=== PATIENT | male | born 1955 | race Two or more races ===

== ENCOUNTER 2018-11-08 01:02 | Emergency (ER) | payer MEDICAID ==
[~2018-11-08] VITALS: Ht 175.3 cm; Wt 65.8 kg
[~2018-11-08 01:02] MED LIST: METH10T GT
[2018-11-08 01:30] VITALS: BP 118/86
[2018-11-08 03:49] LABS: Basophils # (auto) 0 uL; Basophils % (auto) 0.3 % (0.0-2.0); Eosinophils # (auto) 0.5 uL; Eosinophils % (auto) 7.1 % (0.0-7.0); Hematocrit 37.4 % (41.0-53.0); Hemoglobin 12.1 g/dL (13.5-17.5); Lymphocytes # (auto) 1.8 uL; Lymphocytes % (auto) 26.8 % (10.0-50.0); Mean Corpuscular Hemoglobin 29.6 pg (28.0-32.0); Mean Corpuscular Hgb Conc. 32.3 g/dL (32.0-36.0); Mean Corpuscular Volume 91.5 fL (80.0-100.0); Monocytes # (auto) 0.6 uL; Monocytes % (auto) 9.4 % (0.0-12.0); Neutrophils # (auto) 3.8 uL; Neutrophils % (auto) 56.4 % (37.0-80.0); Nucleated Red Blood Cells % 0.1 %; Platelet Count (auto) 191 10^3/uL (140-450); Red Blood Cells 4.09 10^6/uL (4.5-5.90); Red Cell Distribution Width 18.4 % (11.8-14.3); White Blood Cell 6.7 10^3/uL (4.4-10.8)
[2018-11-08 04:01] LABS: Albumin 3.2 g/dL (3.4-5.0); Calcium 9.1 mg/dL (8.5-10.1); Magnesium 2.5 mg/dL (1.6-2.6); Potassium 4.9 mmol/L (3.5-5.1)
[2018-11-08 04:05] LABS: Bilirubin, Total 0.7 mg/dL (0.2-1.0); Total Protein 7.8 g/dL (6.4-8.2)
[2018-11-08 04:26] LABS: INR 1.22 (0.9-1.15); Partial Thromboplastin Time 25.4 sec (23.78-33.04); Prothrombin Time 12.9 sec (9.27-12.13)
== END 2018-11-08 06:00 | disposition left against medical advice (07) ==
LOC: ER 01:06
DX: R06.02 Shortness of breath (principal); Z53.21 Procedure and treatment not carried out due to patient leaving prior to being seen by health care provider
CPT/HCPCS: 36415; 71045; 74176; 80053; 83735; 83880; 84484; 85025; 85610; 85730; 93005

== ENCOUNTER 2018-11-24 19:18 | Emergency (ER) | payer MEDICAID ==
[~2018-11-24] VITALS: Ht 175.3 cm; Wt 68.9 kg
[2018-11-24 21:30] LABS: Basophils # (auto) 0 uL; Basophils % (auto) 0.1 % (0.0-2.0); Eosinophils # (auto) 0.8 uL; Eosinophils % (auto) 13.2 % (0.0-7.0); Hematocrit 37.4 % (41.0-53.0); Hemoglobin 11.8 g/dL (13.5-17.5); Lymphocytes # (auto) 1.5 uL; Lymphocytes % (auto) 25.7 % (10.0-50.0); Mean Corpuscular Hemoglobin 29.4 pg (28.0-32.0); Mean Corpuscular Hgb Conc. 31.7 g/dL (32.0-36.0); Mean Corpuscular Volume 92.7 fL (80.0-100.0); Monocytes # (auto) 0.6 uL; Monocytes % (auto) 9.6 % (0.0-12.0); Neutrophils % (auto) 51.4 % (37.0-80.0); Nucleated Red Blood Cells % 0.1 %; Platelet Count (auto) 211 10^3/uL (140-450); Red Blood Cells 4.03 10^6/uL (4.5-5.90); Red Cell Distribution Width 18.9 % (11.8-14.3); White Blood Cell 5.9 10^3/uL (4.4-10.8)
[2018-11-24 21:49] LABS: Albumin 3.1 g/dL (3.4-5.0); BUN/Creatinine Ratio 23.5; Calcium 9.2 mg/dL (8.5-10.1); Potassium 4.9 mmol/L (3.5-5.1)
[2018-11-24 21:58] LABS: Bilirubin, Total 0.8 mg/dL (0.2-1.0); Total Protein 7.4 g/dL (6.4-8.2)
[2018-11-25 02:57] LABS: Urine Bacteria MANY /hpf (None Seen); Urine Blood 2+ /uL (Negative); Urine Budding Yeast MANY /hpf (None Seen); Urine Specific Gravity 1.018 (1.001-1.035); Urine WBC 2910 /hpf (0 - 3)
[2018-11-25 04:41] VITALS: BP 153/92
[2018-11-25] MEDS ORDERED: FAMOTIDINE (10MG/ML) 2ML VL IV ONE (04:45)
[2018-11-25] MEDS ORDERED: FUROSEMIDE 20 MG/2 ML VIAL IV ONE (04:45)
[2018-11-25] MEDS ORDERED: cefTRIAXone 1GM/50ML D5W 50 ML IV ONE (05:00)
== END 2018-11-25 06:11 | disposition home or self-care (01) ==
LOC: ER 19:35
DX: I50.9 Heart failure, unspecified (principal); N39.0 Urinary tract infection, site not specified; R60.0 Localized edema; Z79.899 Other long term (current) drug therapy; J44.9 Chronic obstructive pulmonary disease, unspecified; F17.210 Nicotine dependence, cigarettes, uncomplicated
CPT/HCPCS: 36415; 71045; 80053; 81001; 82140; 83880; 84484; 85025; 93005; 96365; 96375; 99284; J0696; J1940; J3490

== ENCOUNTER 2019-09-26 13:24 | Emergency (ER) | payer MEDICAID ==
[~2019-09-26] VITALS: Ht 175.3 cm; Wt 55.3 kg
[~2019-09-26 13:24] MED LIST changes: +ATOR20TA50 PO; +BUPR8MIS SL; +CAR3125T PO; +FURO40TA4 PO; +SPIR25TA88 PO
[2019-09-26 13:55] VITALS: BP 109/77
[2019-09-26] MEDS ORDERED: GLUCAGON HYDROCHLORIDE (RDNA) 1 MG VIAL IV ONE (15:00)
== END 2019-09-26 17:46 | disposition left against medical advice (07) ==
LOC: ER 13:34
DX: T18.128A Food in esophagus causing other injury, initial encounter (principal); J44.9 Chronic obstructive pulmonary disease, unspecified; F17.210 Nicotine dependence, cigarettes, uncomplicated; W22.8XXA Striking against or struck by other objects, initial encounter; Y93.89 Activity, other specified; Y92.89 Other specified places as the place of occurrence of the external cause; Y99.8 Other external cause status

== ENCOUNTER 2020-07-09 17:40 | Inpatient (IN) | payer MEDICAID ==
[~2020-07-09] VITALS: Ht 167.6 cm; Wt 54.0 kg
[2020-07-09 21:19] LABS: Basophils # (auto) 0 10 ^3/uL (0-0.2); Basophils % (auto) 0.3 % (0.0-2.0); Lymphocytes # (auto) 1.7 10 ^3/uL (0.4-5.4); Monocytes # (auto) 0.4 10 ^3/uL (0-1.3); Nucleated Red Blood Cells % 0.1 %; Red Cell Distribution Width 18.2 % (11.8-14.3)
[2020-07-09 21:22] LABS: Eosinophils # (auto) 0.8 10 ^3/uL (0-0.8); Hematocrit 20.3 % (41.0-53.0); Lymphocytes % (auto) 35.3 % (10.0-50.0); Mean Corpuscular Hemoglobin 21.3 pg (28.0-32.0); Mean Corpuscular Hgb Conc. 30.7 g/dL (32.0-36.0); Mean Corpuscular Volume 69.5 fL (80.0-100.0); Monocytes % (auto) 8.5 % (0.0-12.0); Neutrophils % (auto) 40.4 % (37.0-80.0); Platelet Count (auto) 100 10^3/uL (140-450); Red Blood Cells 2.93 10^6/uL (4.5-5.90); White Blood Cell 4.9 10^3/uL (4.4-10.8)
[2020-07-09 21:45] LABS: Eosinophils % (auto) 15.5 % (0.0-7.0)
[2020-07-09 21:52] LABS: Hemoglobin 6.2 g/dL (13.5-17.5)
[2020-07-09 23:46] LABS: Potassium 4.2 mmol/L (3.5-5.1); Sodium 135 mmol/L (136-145)
[2020-07-09 23:47] LABS: Alanine Aminotransferase 42 U/L (16-61); Albumin 3.4 g/dL (3.4-5.0); Alkaline Phosphatase 114 U/L (45-117); Anion Gap 6 (5-15); Aspartate Aminotransferase 46 U/L (15-37); BUN/Creatinine Ratio 23.7; Bilirubin, Total 0.4 mg/dL (0.2-1.0); Blood Urea Nitrogen 22 mg/dL (7-18); Calcium 9.9 mg/dL (8.5-10.1); Carbon Dioxide 22 mmol/L (21-32); Chloride 107 mmol/L (98-107); GFR African American 106 mL/min; GFR Non-African American 87 mL/min; Glucose 84 mg/dL (74-106); Magnesium 2.2 mg/dL (1.6-2.6); Total Protein 8.4 g/dL (6.4-8.2)
[2020-07-10] VITALS (8 sets, daily range): BP systolic 99–115; BP diastolic 59–72
[2020-07-10 00:40] LABS: INR 1.1 (0.9-1.15); Partial Thromboplastin Time 24.3 sec (23.0-31.2)
[2020-07-10] MEDS ORDERED: ONDANSETRON HCL 4 MG/2 ML VIAL IV PRN (04:30)
[2020-07-10] MEDS ORDERED: TEMAZEPAM 15 MG CAP PO PRN (04:30)
[2020-07-10] MEDS ORDERED: ACETAMINOPHEN 325 MG TAB PO PRN (04:30)
[2020-07-10 04:57] LABS: Urine Bacteria FEW /hpf (None Seen); Urine Blood Negative /uL (Negative); Urine Hyaline Cast FEW /lpf (0 - 2); Urine WBC 291 /hpf (0 - 3)
--- NOTE | 2020-07-10 05:30 | NUR ---
MS admit from ER ASHLI DOWNING admitted to [facility] unit after SBAR received. Patient oriented to NIURKA PIRES RN primary RN, unit, room, bed, and unit policies regarding patient care and visiting hours. Patient made comfortable, weighed by bedscale and encouraged to call if they need something. All questions and concerns addressed, patient verbalized understanding. Pt resting in bed with call christopher in reach. Will continue to monitor.
[2020-07-10] MEDS: SPIRONOLACTONE 25 MG TAB PO SCH ×2 (06:46→18:03)
--- NOTE | 2020-07-10 09:27 | NUR ---
ss consult Per consult advanced directive. Patient has been provided with advance directive. Addendum: 07/10/20 at 0930 by Eladia MAYORGA Amended: Links added.
[2020-07-10] MEDS: FUROSEMIDE 40 MG TAB PO SCH (10:33)
[2020-07-10] MEDS: FAMOTIDINE 20 MG TAB PO SCH ×2 (10:33→22:10)
[2020-07-10] MEDS: CARVEDILOL 3.125 MG TAB PO SCH ×2 (10:34→22:00)
[2020-07-10] MEDS: cefTRIAXone 1GM/50ML D5W 50 ML IV SCH (10:34)
[2020-07-10 11:26] LABS: Hematocrit 25.7 % (41.0-53.0)
[2020-07-10] MEDS: VANCOMYCIN HCL 125MG/5ML ORAL SOL PO SCH ×2 (18:03→22:10)
[2020-07-10 18:34] LABS: % Iron Saturation 11.2 % (20-55)
[2020-07-10] MEDS ORDERED: ATORVASTATIN 20 MG TAB PO SCH (22:00)
[2020-07-11 05:00] VITALS: BP 90/54
[2020-07-11] MEDS: VANCOMYCIN HCL 125MG/5ML ORAL SOL PO SCH ×2 (05:49→11:52)
[2020-07-11] MEDS: SPIRONOLACTONE 25 MG TAB PO SCH (05:49)
[2020-07-11 07:14] LABS: White Blood Cell 7.9 10^3/uL (4.4-10.8)
[2020-07-11 07:16] LABS: Hematocrit 28.9 % (41.0-53.0); Hemoglobin 8.9 g/dL (13.5-17.5); Mean Corpuscular Hemoglobin 22.2 pg (28.0-32.0); Mean Corpuscular Hgb Conc. 30.7 g/dL (32.0-36.0); Mean Corpuscular Volume 72.2 fL (80.0-100.0); Platelet Count (auto) 359 10^3/uL (140-450); Red Blood Cells 4.01 10^6/uL (4.5-5.90); Red Cell Distribution Width 19.8 % (11.8-14.3)
[2020-07-11 07:32] LABS: Basophils % (manual) 0 (0.0-2.0); Blast Cells 0; Metamyelocytes % 0; Myelocytes % 0; Promyelocytes % 0; Reactive Lymphocytes 0
[2020-07-11 07:33] LABS: Magnesium 2.4 mg/dL (1.6-2.6); Potassium 4.4 mmol/L (3.5-5.1)
[2020-07-11 07:36] LABS: BUN/Creatinine Ratio 23.9
[2020-07-11 08:10] LABS: Band Neutrophils % (manual) 1; Eosinophils % (manual) 14 (0-7); Lymphocytes % (manual) 13 (10.0-50.0); Monocytes % (manual) 3 (0-12)
[2020-07-11 09:00] VITALS: BP 101/65
[2020-07-11] MEDS: cefTRIAXone 1GM/50ML D5W 50 ML IV SCH (09:44)
[2020-07-11] MEDS: FUROSEMIDE 40 MG TAB PO SCH (09:45)
[2020-07-11] MEDS: FAMOTIDINE 20 MG TAB PO SCH (09:45)
[2020-07-11] MEDS: CARVEDILOL 3.125 MG TAB PO SCH (09:45)
[2020-07-11 13:00] VITALS: BP 95/62
[2020-07-11 13:53] VITALS: BP 95/62
[2020-07-11 14:51] VITALS: BP 95/62
--- NOTE | 2020-07-11 15:12 | NUR ---
Discharge instructions given as ordered. Encourage to follow up with PMD as instructed. All questions and concerns addressed. Patient verbalized understanding. Medication reconciliation form completed and copy given to patient.IV removed with catheter intact, pressure dressing applied. Patient taken to vehicle via wheelchair with all personal belongings, accompanied by staff and family member. No distress noted at time of departure.
== END 2020-07-11 15:18 | disposition short-term general hospital (02) | DRG 663 ==
LOC: ER 17:40 → OVERFLOW 17:41 → WEST WING 07-10 05:30
PROVIDERS: ADMIT Nurse Practitioner; ATTEND Internal Medicine
PROC: 30233N1 Transfusion of Nonautologous Red Blood Cells into Peripheral Vein, Percutaneous Approach (ICD-10-PCS; principal; 2020-07-10)
DX: D50.0 Iron deficiency anemia secondary to blood loss (chronic) (principal); I34.0 Nonrheumatic mitral (valve) insufficiency; J44.9 Chronic obstructive pulmonary disease, unspecified; D69.6 Thrombocytopenia, unspecified; I50.9 Heart failure, unspecified; F17.210 Nicotine dependence, cigarettes, uncomplicated; G89.4 Chronic pain syndrome; Z83.3 Family history of diabetes mellitus; Z87.828 Personal history of other (healed) physical injury and trauma; R91.1 Solitary pulmonary nodule; B18.2 Chronic viral hepatitis C
CPT/HCPCS: 36415; 71045; 71250; 76700; 80048; 80053; 81001; 82105; 82378; 83540; 83550; 83615; 83735; 83880; 84484; 85007; 85014; 85018; 85025; 85027; 85045; 85610; 85730; 86850; 86880; 86900; 86901; 86920; 87086; 93005; G0378; J0696

== ENCOUNTER 2020-08-07 16:46 | Emergency (ER) | payer MEDICAID | END 2020-08-07 17:30 | disposition left against medical advice (07) | LOC: ER 16:46 | DX: R06.02 Shortness of breath (principal); Z53.21 Procedure and treatment not carried out due to patient leaving prior to being seen by health care provider ==

== ENCOUNTER 2020-08-08 10:47 | Emergency (ER) | payer MEDICAID ==
[~2020-08-08] VITALS: Ht 175.3 cm; Wt 54.4 kg
[2020-08-08 10:47] VITALS: BP 99/63
[2020-08-08 14:32] LABS: Mean Corpuscular Volume 81.3 fL (80.0-100.0); White Blood Cell 2.4 10^3/uL (4.4-10.8)
[2020-08-08 14:34] LABS: Hematocrit 35.7 % (41.0-53.0); Hemoglobin 10.4 g/dL (13.5-17.5); Mean Corpuscular Hemoglobin 23.7 pg (28.0-32.0); Mean Corpuscular Hgb Conc. 29.1 g/dL (32.0-36.0); Platelet Count (auto) 161 10^3/uL (140-450); Red Blood Cells 4.39 10^6/uL (4.5-5.90)
[2020-08-08 14:40] LABS: Red Cell Distribution Width 29.3 % (11.8-14.3)
[2020-08-08 14:42] LABS: Basophils % (manual) 0 (0.0-2.0); Blast Cells 0; Eosinophils % (manual) 0 (0-7); Promyelocytes % 0; Reactive Lymphocytes 0
[2020-08-08 14:52] LABS: Albumin 2.6 g/dL (3.4-5.0); Anion Gap 7 (5-15); Blood Urea Nitrogen 33 mg/dL (7-18); Calcium 10.5 mg/dL (8.5-10.1); Carbon Dioxide 17 mmol/L (21-32); Chloride 107 mmol/L (98-107); Glucose 81 mg/dL (74-106); Potassium 5.2 mmol/L (3.5-5.1); Sodium 131 mmol/L (136-145)
[2020-08-08 14:56] LABS: Alanine Aminotransferase 38 U/L (16-61); Alkaline Phosphatase 78 U/L (45-117); Aspartate Aminotransferase 64 U/L (15-37); BUN/Creatinine Ratio 31.7; Bilirubin, Total 0.8 mg/dL (0.2-1.0); GFR African American 93 mL/min; GFR Non-African American 77 mL/min; Total Protein 8.1 g/dL (6.4-8.2)
[2020-08-08 15:29] LABS: Band Neutrophils % (manual) 7; Lymphocytes % (manual) 7 (10.0-50.0); Metamyelocytes % 2; Monocytes % (manual) 3 (0-12); Myelocytes % 1
== END 2020-08-09 07:24 | disposition home or self-care (01) ==
LOC: ER 10:47
DX: R07.89 Other chest pain (principal); F17.210 Nicotine dependence, cigarettes, uncomplicated; F44.9 Dissociative and conversion disorder, unspecified
CPT/HCPCS: 36415; 71045; 80053; 84484; 85007; 85027